=== PATIENT | male | born 1980 | race Caucasian/White ===

== ENCOUNTER 2018-09-03 08:21 | Emergency (ER) | payer BC ==
[2018-09-03] MEDS ORDERED: Sodium Chloride 0.9% 10 ML Syringe FLUSH PRN (08:41)
[2018-09-03] MEDS ORDERED: Ketorolac 30 MG/ML SDV IVPUSH ONE (08:42)
[2018-09-03] MEDS ORDERED: Ondansetron 4 MG/2 ML SDV IVPUSH ONE (08:42)
--- NOTE | 2018-09-03 08:44 | EDM.PDOC ---
ED HPI GENERAL MEDICAL PROBLEM - General Chief Complaint: General Stated Complaint: SEVER BACK PAIN Time Seen by Provider: 09/03/18 08:38 Source of Information: Reports: Patient, Family, RN Notes Reviewed History Limitations: Reports: No Limitations - History of Present Illness INITIAL COMMENTS - FREE TEXT/NARRATIVE: 38-year-old gentleman presents emergency department today complaint of right flank pain, he states came on suddenly this morning it does wax and wane he was almost pain-free before presenting to the emergency department than the pain became very intense again he does have nausea with the pain no history of nephrolithiasis past medical history of dyslipidemia and prediabetes Left Flank Pain Score (Numeric/FACES): 10 Right Flank Pain Score (Numeric/FACES): 4 - Related Data Allergies Allergy/AdvReac Type Severity Reaction Status Date / Time No Known Allergies Allergy Verified 09/03/18 08:39 Home Meds: Home Meds Cyclobenzaprine HCl 10 mg PO ASDIRECTED PRN 09/03/18 [History] Omeprazole 20 mg PO DAILY 09/03/18 [History] Topiramate 25 mg PO BID 09/03/18 [History] atorvaSTATin Calcium [Atorvastatin Calcium] 20 mg PO DAILY 09/03/18 [History] Past Medical History Cardiovascular History: Reports: High Cholesterol Endocrine/Metabolic History: Reports: Diabetes, Type I (Prediabetes), Obesity/ BMI 30+ Social & Family History - Tobacco Use Smoking Status *Q: Never Smoker ED ROS GENERAL - Review of Systems Review Of Systems: See Below Constitutional: Reports: No Symptoms HEENT: Reports: No Symptoms Respiratory: Reports: No Symptoms Cardiovascular: Reports: No Symptoms GI/Abdominal: Reports: Abdominal Pain, Nausea : Reports: Flank Pain ED EXAM, GENERAL - Physical Exam Exam: See Below Exam Limited By: No Limitations General Appearance: Alert, Mild Distress Neck: Normal Inspection, Supple, Non-Tender, Full Range of Motion Respiratory/Chest: No Respiratory Distress, Lungs Clear, Normal Breath Sounds, No Accessory Muscle Use, Chest Non-Tender Cardiovascular: Regular Rate, Rhythm, No Murmur GI/Abdominal: Soft, Non-Tender Extremities: Normal Inspection, No Pedal Edema Course - Vital Signs Last Recorded V/S: Last Vital Signs Temp 97.4 F 09/03/18 08:37 Pulse 61 09/03/18 09:02 Resp 18 09/03/18 09:02 BP 147/81 H 09/03/18 09:02 Pulse Ox 98 09/03/18 09:02 - Orders/Labs/Meds Orders: Active Orders 24 hr Category Date Time Status Peripheral IV Care [RC] . DIRECTED Care 09/03/18 08:41 Active UA W/MICROSCOPIC [URIN] Urgent Lab 09/03/18 08:41 Ordered Lactated Ringers [Ringers, Lactated] 1,000 ml Med 09/03/18 08:45 Active IV ASDIRECTED Sodium Chloride 0.9% [Saline Flush] Med 09/03/18 08:41 Active 10 ml FLUSH ASDIRECTED PRN Peripheral IV Insertion Adult [OM.PC] Urgent Oth 09/03/18 08:41 Ordered Medication Orders Lactated Ringer's (Ringers, Lactated) 1,000 mls @ 999 mls/hr IV ASDIRECTED KAMILLE Last Admin: 09/03/18 08:47 Dose: 999 mls/hr Sodium Chloride (Saline Flush) 10 ml FLUSH ASDIRECTED PRN PRN Reason: Keep Vein Open Last Admin: 09/03/18 08:53 Dose: 10 ml Labs: Laboratory Tests 09/03/18 09/03/18 09/03/18 Range/Units 08:54 08:54 08:54 WBC 8.3 (4.5-11.0) K/uL RBC 5.08 (4.30-5.90) M/uL Hgb 15.6 H (12.0-15.0) g/dL Hct 44.6 (40.0-54.0) % MCV 88 (80-98) fL MCH 31 (27-31) pg MCHC 35 (32-36) % Plt Count 207 (150-400) K/uL Neut % (Auto) 76 H (36-66) % Lymph % (Auto) 16 L (24-44) % [place] % (Auto) 5 (2-6) % Eos % (Auto) 2 (2-4) % Baso % (Auto) 1 (0-1) % Sodium 141 (140-148) mmol/L Potassium 3.9 (3.6-5.2) mmol/L Chloride 105 (100-108) mmol/L Carbon Dioxide 23 (21-32) mmol/L Anion Gap 12.8 (5.0-14.0) mmol/L BUN 17 (7-18) mg/dL Creatinine 1.1 (0.8-1.3) mg/dL Est Cr Clr Drug Dosing 107.76 mL/min Estimated GFR (MDRD) > 60 (>60) Glucose 136 H (74-106) mg/dL Lactic Acid 2.2 H (0.4-2.0) mmol/L Calcium 9.1 (8.5-10.1) mg/dL Total Bilirubin 0.3 (0.2-1.0) mg/dL AST 30 (15-37) U/L ALT 70 (12-78) U/L Alkaline Phosphatase 72 (46-116) U/L CK-MB (CK-2) 1.0 (0-3.6) mg/mL Troponin I < 0.017 (0.000-0.056) ng/mL Total Protein 7.0 (6.4-8.2) g/dL Albumin 4.0 (3.4-5.0) g/dL Globulin 3.0 (2.3-3.5) g/dL Albumin/Globulin Ratio 1.3 (1.2-2.2) Meds: Medications Generic Name Dose Route Start Last Admin Trade Name Freq PRN Reason Stop Dose Admin Lactated Ringer's 1,000 mls @ 999 mls/hr 09/03/18 08:45 09/03/18 08:47 Ringers, Lactated IV 999 mls/hr ASDIRECTED KAMILLE Administration Sodium Chloride 10 ml 09/03/18 08:41 09/03/18 08:53 Saline Flush FLUSH 10 ml ASDIRECTED PRN Administration Keep Vein Open Discontinued Medications Generic Name Dose Route Start Last Admin Trade Name Freq PRN Reason Stop Dose Admin Fentanyl 50 mcg 09/03/18 09:32 Sublimaze IVPUSH 09/03/18 09:33 ONETIME ONE Ketorolac Tromethamine 30 mg 09/03/18 08:42 09/03/18 08:50 Toradol IVPUSH 09/03/18 08:43 30 mg ONETIME ONE Administration Ondansetron HCl 4 mg 09/03/18 08:42 09/03/18 08:48 Zofran IVPUSH 09/03/18 08:43 4 mg ONETIME ONE Administration Departure - Departure Time of Disposition: 09:40 Disposition: Home, Self-Care 01 Condition: Fair Clinical Impression: Nephrolithiasis - Discharge Information Referrals: PCP,None [Primary Care Provider] - Forms: ED Department Discharge Additional Instructions: Use ibuprofen for baseline pain control, use hydrocodone for breakthrough pain, continue to push fluids. Please followup with your primary care provider in 3- 5 days if not better, please call return to the emergency department with worsening of symptoms. - My Orders Last 24 Hours: My Active Orders 09/03/18 08:41 Peripheral IV Care [RC] . DIRECTED UA W/MICROSCOPIC [URIN] Urgent Sodium Chloride 0.9% [Saline Flush] 10 ml FLUSH ASDIRECTED PRN Peripheral IV Insertion Adult [OM.PC] Urgent 09/03/18 08:45 Lactated Ringers [Ringers, Lactated] 1,000 ml IV ASDIRECTED - Assessment/Plan Last 24 Hours: My Active Orders 09/03/18 08:41 Peripheral IV Care [RC] . DIRECTED UA W/MICROSCOPIC [URIN] Urgent Sodium Chloride 0.9% [Saline Flush] 10 ml FLUSH ASDIRECTED PRN Peripheral IV Insertion Adult [OM.PC] Urgent 09/03/18 08:45 Lactated Ringers [Ringers, Lactated] 1,000 ml IV ASDIRECTED Plan: Assessment Acuity = acute Site and laterality = right-sided 5 mm nephrolithiasis within the ureter and mild hydronephrosis Etiology = unknown etiology Manifestations = abdominal pain, nausea Location of injury = Home Lab values = CBC, CMP, troponin unremarkable urinalysis pending, CT scan describes a stone above Plan I did review lab work CT scan results with him prescription for hydrocodone 5/ 325 one tab by mouth 3 times a day when necessary total #20 follow-up primary care 3-5 days if no improvement strainer provided This note was dictated using [employer] voice recognition software please call with any questions on syntax or grammar.
[2018-09-03] MEDS ORDERED: Lactated Ringers 1,000 ML IV SCH (08:45)
--- NOTE | 2018-09-03 09:23 | CRLCT ---
HISTORY: Right flank pain Technique: Noncontrast CT abdomen and pelvis coronal sagittal reformat images obtained. COMPARISON: No comparison studies are available. Findings: The lung bases appear clear. Heart size is normal. There is no pericardial or pleural effusion. The unenhanced liver spleen pancreas gallbladder, adrenal glands appears unremarkable. No renal calculi. Left kidney is unremarkable no hydronephrosis. There is mild right hydronephrosis and hydroureter with a 5 mm right proximal ureteral stone. Normal appendix. Fat containing umbilical hernia. Urinary bladder is unremarkable. Prostate gland within normal limits. Diverticulosis. No suspicious bony lesions. Impression: 1. 5 millimeter right proximal ureteral stone causing mild hydronephrosis and hydroureter. Please note that all CT scans at this facility use dose modulation, iterative reconstruction, and/or weight-based dosing when appropriate to reduce radiation dose to as low as reasonably achievable. Dictated by Carly Cook MD @ Sep 03 2018 9:18AM Signed by Dr. Carly Cook @ Sep 03 2018 9:22AM
[2018-09-03] MEDS ORDERED: fentaNYL 100 MCG/2 ML SDV IVPUSH ONE (09:32)
== END 2018-09-03 10:04 | disposition home or self-care (01) ==
LOC: JP.ED 08:21
DX: N13.2 Hydronephrosis with renal and ureteral calculous obstruction (principal); E78.00 Pure hypercholesterolemia, unspecified; Z79.899 Other long term (current) drug therapy
CPT/HCPCS: 36415; 74176; 80053; 82553; 83605; 84484; 85025; 96361; 96374; 96375; 99284; J1885; J2405; J3010; J7120